=== PATIENT | male | born 1945 ===

== ENCOUNTER 2019-09-22 06:30 | Observation (INO) ==
--- NOTE | 2019-09-16 11:38 | PAT Medication Instructions ---
Medication Instructions Date of Service September 16, 2019 Home Medications fluoxetine 20 mg capsule 20 mg PO QAM hydrochlorothiazide 12.5 mg tablet 25 mg PO QAM losartan 50 mg tablet 25 mg PO QAM DO NOT take the morning of surgery hydrochlorothiazide 12.5 mg tablet 25 mg PO QAM losartan 50 mg tablet 25 mg PO QAM Take morning of surgery With a small sip of water, OTHERWISE NOTHING TO EAT OR DRINK AFTER MIDNIGHT: fluoxetine 20 mg capsule 20 mg PO QAM Other Notes If you have any questions please call us at [phone] or [phone] or [phone] or [phone]
--- NOTE | 2019-09-19 11:28 | Anesthesiology Consultation ---
Date of Service September 19, 2019 Assessment & Plan (1) Encounter for pre-operative examination: Chart Review Chart Review: Acceptable Risk for Surgery and Patient seen in Pre Admission Testing Teaching & Discussion Pre-Anesthesia Teaching/Discussion Notes: Instructed NPO after midnight before surgery,except medications with 15 cc of water. Medication instructions provided according to the PAT guidelines. History Surgery Operation Date: 09/22/19 12:25 Proposed Procedures p Laparoscopic Robotic Assisted Radical Retropubic Prostatectomy, Possible Open, Possible Pelvic Lumph Node Dissection, Possible Suprapubic Tube Placement - Masood Rodriguez MD Height/Weight Height: 5 ft 9 in Weight: 88.8 kg Allergies Allergy/AdvReac Type Severity Reaction Status Date / Time No Known Allergies Allergy Unverified 09/16/19 08:51 Medications Home Medications Medication Instructions Recorded Confirmed Last Taken fluoxetine 20 mg capsule 20 mg PO QAM 09/06/19 09/16/19 Unknown hydrochlorothiazide 12.5 mg tablet 25 mg PO QAM 09/06/19 09/16/19 Unknown losartan 50 mg tablet 25 mg PO QAM 09/06/19 09/16/19 Unknown Past Medical History Medical History (Updated 09/19/19 @ 15:40 by Marie Antony PA-C) Anxiety Hypertension Mood disorder Pt reports taking Prozac for "short temper." Necrotizing inflammation of lymph node Had biopsy of LN in posterior neck- 09/16/19- positive for SCC- Dr. Rodriguez came to PAT on 09/19/19 to discuss with patient. Not from prostate cancer Osteoarthritis Prostate cancer Exercise / Class Metabolic Activity II 4-5 Yardwork/Stairs/Walk up hill (one flight of stairs- no chest pain and SOB ) Past Family History Family History Mother , 95yo Natural with unknown cause Father , 56yo Myocardial infarction Sister Pacemaker Daughter No problems noted. Daughter No problems noted. Daughter No problems noted. Daughter No problems noted. Past Surgical History Surgical History History of appendectomy History of cardiac cath over 10 yrs ago> [facility] PER PATIENT> NO STENTS History of tooth extraction WISDOM TEETH S/P tonsillectomy and adenoidectomy Past Anesthesia History No Hx of Anesthesia Complications and No Family Hx of Anesthesia Complications History of PONV No Hx of PONV and No Hx of Motion Sickness Social History Smoking Status: Former smoker tobacco type: cigarettes Smoking cigarettes per day: Quit 1979;1-2 PPD x 34yrs; Do You Dip or Chew Tobacco: No Smoking End Date: 1979 Hx Alcohol Use: Yes Alcohol type: beer alcohol intake frequency: a few times a month Hx Substance Use: No substance use type: does not use Review of Systems Reflux- occ - relieved with aloe vera juice Snoring- occ apnea x 6-8 seconds (recommended follow up with PCP) Patient denies chest pain, shortness of breath, dyspnea on exertion, cough, wheezing, palpitations. No hx of seizures, stroke, CT. No hx of blood clots or blood transfusions Physical Exam Vital Signs VITALS BP 166/98 (Dr Rodriguez had come into PAT appt- did deliver unfortunate news that LN bx from neck positive for cancer) P 67 TEMP 98.0 SP02 100% RESP 16 Constitutional no acute distress ENMT Mouth: no TMJ clicking Thyromental Distance: > or= 3.5 Finger Breadths (4.0) Mallampati Class: III Missing molars Crowned molars Bottom right back molar chipped Neck + limited neck extension (significant ) Respiratory normal respiratory effort; no respiratory distress Auscultation: lungs clear to auscultation bilaterally; no wheezes Cardiovascular Rate/Rhythm: regular rate and regular rhythm Heart Sounds: no murmur Vessels: no carotid bruit Extremities: no edema Musculoskeletal Spine: + pain with cervical ROM (mild pulling discomfort ) Neurologic moves all extremities Psychiatric Orientation: alert Testing Laboratory Results 09/19/19 11:54 09/19/19 11:54 Urine Color Yellow 09/19/19 11:54 Urine Appearance Clear (Clear) 09/19/19 11:54 Urine pH 7.0 (4.5-7.5) 09/19/19 11:54 Ur Specific [place] 1.008 (1.000-1.030) 09/19/19 11:54 Urine Protein Negative (Negative) 09/19/19 11:54 Urine Glucose (UA) Negative (Negative) 09/19/19 11:54 Urine Ketones Negative (Negative) 09/19/19 11:54 Urine Nitrite Negative (Negative) 09/19/19 11:54 Ur Leukocyte Esterase Negative (Negative) 09/19/19 11:54 Blood Type B Positive 09/19/19 11:54 Antibody Screen NEGATIVE 09/19/19 11:54 Electrocardiogram Date: 09/19/19 Findings: + NSR @ (68) Chest X-Ray Date: 09/19/19 Findings: + NAD Other Testing Chest CT 09/19/19= No acute intrathoracic abnormality. No pathologically enlarged lymph nodes or evidence of pulmonary metastatic disease. Minimal subpleural reticulation of the basal left lower lobe suggests fibrotic change. 11 x 8 mm soft tissue density structure the prevascular tissues, image 61 series 4 suggestive of a prominent lymph node. No pathologically enlarged lymph nodes by CT size criteria. Moderate coronary artery calcifications. Mild mixed plaque of the thoracic aortic arch.
--- NOTE | 2019-09-19 12:49 | XRay Report ---
XR chest Pre-admission PA/Lat HISTORY: 73 years-old Male PAT preoperative exam. No acute chest complaints COMPARISON: CT abdomen pelvis 08/23/2019 TECHNIQUE: PA and lateral views of the chest FINDINGS: Cardiac mediastinal and hilar silhouettes are within normal limits. No pneumothorax, pleural effusion , focal airspace consolidation or overt pulmonary edema. Degenerative changes of the shoulders and sp ine. IMPRESSION: No acute process. ACT 112: Negative or not required by law. The above report was generated using voice recognition software. It may contain grammatical, syntax o r spelling errors. Electronically signed by: Erwin Benavides M.D. 09/19/2019 12:48 PM
[2019-09-19 13:06] LABS: Appearance Urine Clear (Clear); Bilirubin Urine Negative (Negative); Blood Urine Negative (Negative); Color Urine Yellow; Glucose Urine UA Negative (Negative); Ketones Urine Negative (Negative); Leukocyte Esterase Urine Negative (Negative); Nitrite Urine Negative (Negative); Protein Urine Negative (Negative); Specific Gravity Urine 1.008 (1.000-1.030); Urobilinogen Urine Negative (Negative)
[2019-09-19 13:10] LABS: Basophils # (auto) 0.05 K/uL (0-0.2); Basophils % (auto) 0.6 %; Eosinophils # (auto) 0.16 K/uL (0-0.5); Eosinophils % (auto) 1.9 %; Hematocrit (blood only) 42.8 % (42-52); Hemoglobin 14.2 g/dL (14.0-18.0); Immature Granulocytes # (auto) 0.02 K/uL (0.00-0.02); Immature Granulocytes % (auto) 0.2 %; Lymphocytes # (auto) 2.01 K/uL (1.2-3.4); Lymphocytes % (auto) 23.6 %; Mean Corpuscular Hemoglobin 30.2 pg (25-34); Mean Corpuscular Hgb Conc 33.2 g/dL (32-36); Mean Corpuscular Volume 91.1 fL (80-100); Mean Platelet Volume 12.4 fL (7.4-10.4); Monocytes # (auto) 0.69 K/uL (0.11-0.59); Monocytes % (auto) 8.1 %; Neutrophils # (auto) 5.59 K/uL (1.4-6.5); Neutrophils % (auto) 65.6 %; Platelet Count 205 K/uL (130-400); RDW Coefficient of Variation 12.6 % (11.5-14.5); RDW Standard Deviation 42.3 fL (36.4-46.3); White Blood Count 8.52 K/uL (4.8-10.8)
[2019-09-19 13:21] LABS: BUN Creatinine Ratio 18.4 (10-20); Calcium 9.3 mg/dl (8.5-10.1); Creatinine Clr Calc Pharmacy 66.5 ml/min; Est GFR (African American) 77.6; Potassium 4.3 mmol/L (3.5-5.1)
--- NOTE | 2019-09-19 13:26 | Electrocardiogram Report ---
Test Reason : Blood Pressure : / mmHG Vent. Rate : 068 BPM Atrial Rate : 068 BPM P-R Int : 152 ms QRS Dur : 090 ms QT Int : 400 ms P-R-T Axes : 046 058 030 degrees QTc Int : 425 ms Normal sinus rhythm Normal ECG No previous ECGs available Confirmed by Dc Cisneros ([id number]) on 09/19/2019 1:25:57 PM Referred By: Masood Rodriguez Confirmed By:Dc Cisneros
[~2019-09-22 06:30] MED LIST: ACETAMINOPHEN 1000 MG/100 ML IV IV SCH; CEFAZOLIN 2000MG 2,000 MG/15 ML SYR IV SCH; HEPARIN SOD 5,000 UNIT/0.5 ML VIAL SQ SCH; LACTATED RINGER'S 1,000 ML IV SCH; LR 15ML/HR IV SCH
[2019-09-22] MEDS ORDERED: BUPIVACAINE 0.5 % 5 MG/1 ML MPF 30ML VIAL ONE (07:50)
--- NOTE | 2019-09-22 07:51 | History & Physical Bridge Note ---
Date of Service September 22, 2019 History & Physical Bridge Note I have examined the patient, reviewed the History & Physical and in the interval since the performance of the History & Physical I have noted the following changes of clinical significance: no changes noted
[2019-09-22] MEDS ORDERED: ROCURONIUM BROMIDE 10 MG/ML 5 ML VIAL ONE (08:01)
[2019-09-22] MEDS ORDERED: GLYCOPYRROLATE 0.2 MG/ML VIAL ONE (08:01)
[2019-09-22] MEDS ORDERED: ONDANSETRON INJ 2 MG/ML 2 ML VIAL ONE (08:01)
[2019-09-22] MEDS ORDERED: DEXAMETHASONE SOD INJ 4 MG/ML VIAL ONE (08:01)
[2019-09-22] MEDS ORDERED: LIDOCAINE HCL 2% 2 ML VIAL/AMP(20MG/ML) INFIL ONE (08:01)
[2019-09-22] MEDS ORDERED: PROPOFOL IV EMULSION 10 MG/ML 20 ML VIAL IV ONE (08:01)
[2019-09-22] MEDS ORDERED: NEOSTIGMINE METHYLSULFATE 5 MG/5 ML SYR ONE (08:01)
[2019-09-22] MEDS ORDERED: fentaNYL citrate 100 MCG/2 ML VIAL ONE ×3 (08:01→11:06)
[2019-09-22] MEDS ORDERED: ePHEDrine sulfate 50 MG/ML AMP IV PRN (08:02)
[2019-09-22] MEDS ORDERED: ONDANSETRON INJ 2 MG/ML 2 ML VIAL IV PRN ×2 (08:02→14:33)
[2019-09-22] MEDS ORDERED: ATROPINE SULFATE 0.1 MG/ML 10ML SYR IV PRN (08:02)
[2019-09-22] MEDS ORDERED: MIDAZOLAM HCL 1 MG/ML 2ML VIAL ONE (08:02)
[2019-09-22] MEDS ORDERED: fentaNYL citrate 100 MCG/2 ML VIAL IV PRN (08:02)
[2019-09-22] MEDS ORDERED: FLOSEAL HEMOSTATIC MATRIX 10ML TOP ONE (12:04)
--- NOTE | 2019-09-22 12:36 | Operative Report ---
PG Post Operative Report Pre & Post Diagnosis Operation Date: 09/22/19 08:35 Pre-Op Diagnosis: Prostate Cancer Post-Op Diagnosis: Prostate Cancer I identified the patient and participated in the time-out.: Yes Procedure Operation Date: 09/22/19 08:35 Actual Procedures p Laparoscopic Robotic-Assisted Radical Retropubic Prostatectomy, robotic lysis of adhesions, Bilateral Pelvic Lymph Node Dissection, Suprapubic Tube Placement(Not Applicable) - Masood Rodriguez MD Surgeon Masood Rodriguez MD Jailkeeper Estela AU, ROE Ramsay Estimated Blood Loss 150 Findings Consistent with Post-Op Diagnosis Specimens Prostate + SVs, periprostatic fat, L and R PLN Description of Procedure See above I attest to the content of the Intraoperative Record and any orders documented therein. Any exceptions are noted below.
[2019-09-22 13:21] LABS: Basophils # (auto) 0.01 K/uL (0-0.2); Basophils % (auto) 0.1 %; Hematocrit (blood only) 39.9 % (42-52); Hemoglobin 13.3 g/dL (14.0-18.0); Immature Granulocytes # (auto) 0.03 K/uL (0.00-0.02); Immature Granulocytes % (auto) 0.2 %; Lymphocytes # (auto) 0.71 K/uL (1.2-3.4); Lymphocytes % (auto) 5.3 %; Mean Corpuscular Hemoglobin 30.4 pg (25-34); Mean Corpuscular Volume 91.1 fL (80-100); Mean Platelet Volume 11.7 fL (7.4-10.4); Monocytes # (auto) 0.17 K/uL (0.11-0.59); Monocytes % (auto) 1.3 %; Neutrophils # (auto) 12.36 K/uL (1.4-6.5); Neutrophils % (auto) 93.1 %; Platelet Count 166 K/uL (130-400); RDW Coefficient of Variation 12.5 % (11.5-14.5); RDW Standard Deviation 41.9 fL (36.4-46.3); Red Blood Count 4.38 M/uL (4.7-6.1); White Blood Count 13.28 K/uL (4.8-10.8)
--- NOTE | 2019-09-22 13:23 | Operative Report ---
PG Post Operative Report Pre & Post Diagnosis Operation Date: 09/22/19 08:35 Pre-Op Diagnosis: High volume Fili 5+4 Prostate Cancer with a pretreatment PSA of 23 Post-Op Diagnosis: Same. Surgeon: Dr. Masood Rodriguez. Assistants: ROE Chew, ROE Duarte Anesthesia: General anesthesia with endotracheal ablation plus local at port sites. Drains left in place: 16 Danish suprapubic catheter with 10 cc of sterile water in the balloon, 18 Danish Conde catheter with 10 cc of sterile water in the balloon, #10 BAILEE drain left lower quadrant. Findings: Copious colonic adhesions in the left lower quadrant consistent with prior diverticulitis requiring 40 minutes of lysis of adhesions to access surgical field. Some right lower quadrant adhesions noted. Watertight anastomosis with good suprapubic tube location intraoperatively. Significant p eriprostatic inflammation. Specimen sent pathology: Periprostatic fat, prostate plus seminal vesicles, left and right pelvic lymph nodes. Complications: None. IV fluids: 1200 cc of crystalloid. I identified the patient and participated in the time-out.: Yes Procedure Operation Date: 09/22/19 08:35 Actual Procedures p Laparoscopic Robotic-Assisted Radical Retropubic Prostatectomy, robotic lysis of adhesions, Bilateral Pelvic Lymph Node Dissection, (Not Applicable) - Masood Rodriguez MD s Suprapubic Tube Placement(Not Applicable) - Masood Rodriguez MD Brief history: Patient is a 73-year-old male with a history of an elevated and rising PSA found to have high volume, high-grade prostate cancer on prostate biopsy. After discussion of risks and benefits of various forms of intervention is decided upon a robotic prostatectomy to manage his disease. Staging studies with bone scan and CT scan demonstrated no intra-abdominal pathology a questionable focus of increased activity on bone scan of the neck. This led to a soft tissue CT scan demonstrating a necrotic 2 cm lymph node. 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 Patient was evaluated by ENT yesterday and discovered to have a mass on the epiglottis. Per discussion with medical oncology and ENT service we are proceeding with surgical management of his prostate cancer prior to the initiation of therapy in a few weeks time for his squamous cell carcinoma. Please see H&P and outpatient notes for further details. Intravenous Ancef is provided for antibiotic coverage and SCDs as well as subcutaneous heparin were used for DVT prophylaxis. Intravenous Tylenol was provided perioperatively for additional analgesia. Procedure: Patient was properly identified and brought into the operative suite after identification of appropriate consent in the chart. General anesthesia with endotracheal the patient was initiated and patient was prepped and draped in the standard fashion for this procedure. Full timeout procedure was followed. All port sites were anesthetized with local prior to incision. A transverse supraumbilical incision was made and a 0 degree laparoscope with a 12 mm visual obturator was used to enter the abdominal cavity under direct visualization. Abdomen was insufflated to 15 mmHg and inspected. Copious adhesions in the left lower quadrant and fewer in the right lower quadrant were appreciated associated with the bowel. However, location for ports was noted to be clear of adhesions. Ports were placed for fourth arm robotic template including 2 left-sided 7 mm robotic ports, one right-sided 7 robotic port, a 5 mm and 12 mm assistant professor of criminal justice port. Patient was placed in Trendelenburg and robot was brought in and docked. 0 degree lens was introduced lysis of adhesions using cold scissors was performed to allow for access to the pelvis. This took approximately 40 minutes time. After this was complete and approximation of normal anatomy was appreciated. Hook cautery was used to drop the bladder down to the level of the pubic bone in the midline. Prostate was defatted and this was sent for pathologic analysis. Endopelvic fascia was then sharply entered on both sides dissected down to the level of the apex of the prostate. Dorsal venous complex was skeletonized and controlled using 0 Vicryl suture on a CT1 needle in a [id number] fashion. 30 degree down lens was used to place the bladder neck on traction and then dissection was carried down to the level of the Conde catheter which was then used for anterior traction on the prostate gland. Posterior bladder neck was divided and dropped in the midline and noted to be continent. Dissection was carried down to the level of the vas deferens in the midline. These were noted to be significantly indurated, right greater than left. They were able to be dissected free and seminal vesicles were dissected free in their entirety. A buttonhole in the pouch of Ariel was appreciated due to a variant of the patient's anatomy but the rectum was tested and noted to be free of any injuries at this point. Rectum was dropped in the midline down to the level of the apex of the prostate. Inferior bladder pedicles and prostatic pedicles were skeletonized and then divided using a vessel sealer. Remaining dissection was carried out to the level of the apex of the prostate. Conde catheter was replaced and the dorsal venous complex was divided using hot scissors. Due to some bleeding vessels in this area another rrbcxn-fj-jmsxa suture was placed for additional hemostatic control. Rectourethralis fibers were divided and the prostate was brought up into the abdomen where it was placed within an Endo Catch bag for retrieval at the end of the case. FloSeal tissue sealant was placed on the prostate bed for additional postoperative analgesia after testing the rectum with insufflation under saline irrigation and noting that it was free of injury. Attention was then turned to the pelvic lymph node dissections on both sides. Confines of the obturator fossa were used for dissection including the external iliac vein, pelvic sidewall and obturator nerve. Weck clips were used for control of small vessels and large lymphatics as well as cautery as necessary. These were able to be dissected free without any injury to the obturator nerve or artery on either side. Left-sided node packet was labeled using a Weck clip and these were placed within a single Endo Catch bag for retrieval at the end of the case. Additional FloSeal was placed within the obturator fossa for further hemostasis. Attention was then turned to the pelvis where a continent bladder n tato was noted. Using a double-armed V lock suture a running vesicourethral anastomosis was performed. Conde catheter easily into the bladder over the course of the closure. After this was complete catheter was placed within the bladder and the anastomosis was tested with greater than 120 cc of sterile saline and noted to be watertight. Seen the excellent closure of the anastomosis decision was made to proceed with a suprapubic tube placement. Small suprapubic incision was made and a suprapubic tube kit was introduced into the abdomen under direct visualization. After distending the bladder this was introduced into the bladder followed by a 16 Danish silicone catheter with 10 cc of sterile water in the balloon. Urethral Conde was replaced with an 18 Danish catheter with 10 cc of sterile water in the balloon. Catheters were able to be irrigated with isovolemic return from one to the other. Fourth arm was then removed and a #10 BAILEE drain was placed via the fourth arm port within the confines of the pelvis while avoiding placing it directly over the anastomosis. Robotic instruments were removed and robot was de-docked. Supraumbilical incision was enlarged sufficiently to allow for easy removal of the specimen bags which were brought up through this incision using the camera through the 12 mm assistant professor of criminal justice port. All trochars were removed and excess carbon oxide gas was delivered from the abdomen. Supraumbilical incision was closed in 3 layers using 0 Vicryl suture on a UR 5 needle at the level of the fascia, 3-0 Vicryl on the subcutaneous fat and 4-0 Monocryl at the level of the skin. 2-0 silk sutures were used to secure the BAILEE drain and suprapubic tube in place. 4-0 Monocryl was placed at additional skin sites followed by Dermabond dressing at the level of the skin. BAILEE drain was placed to bulb suction and catheters were placed to gravity drainage. Anesthesia was reversed and patient was transferred to the recovery room in stable condition. Follow-up CARE: Patient will be admitted to the floor for standard postoperative management. Surgeon Masood Rodriguez MD Instrument Room Technician Estela AU, ROE Gandhi Estimated Blood Loss 150 Findings Consistent with Post-Op Diagnosis Specimens See above Description of Procedure See above I attest to the content of the Intraoperative Record and any orders documented therein. Any exceptions are noted below.
[2019-09-22 13:39] LABS: BUN Creatinine Ratio 12.1 (10-20); Calcium 8.4 mg/dl (8.5-10.1); Creatinine Clr Calc Pharmacy 50.6 ml/min; Est GFR (African American) 56.9; Est GFR (Non-African American) 49.1; Potassium 3.5 mmol/L (3.5-5.1)
--- NOTE | 2019-09-22 13:39 | Anesthesiology Progress Note ---
Date of Service September 22, 2019 Anesthesia Post Procedure Vital Signs Vital Signs: Temp Pulse Pulse Resp BP Pulse Ox 09/22/19 13:35 98.4 F 86 23 133/75 100 09/22/19 13:25 98.4 F 81 15 147/79 H 100 09/22/19 13:15 84 16 148/81 H 100 09/22/19 13:05 87 15 145/82 H 100 09/22/19 12:55 84 18 144/78 H 100 09/22/19 12:47 97.7 F 88 19 140/78 100 09/22/19 06:56 98.1 F 71 16 140/78 100 Transfer of Care Handoff Completed per policy Notes Mental Status: alert / awake / arousable and participated in evaluation Patient Amnestic to Procedure: Yes Nausea / Vomiting: adequately controlled Pain: adequately controlled Airway Patency, RR, SpO2: stable & adequate BP & HR: stable & adequate Hydration State: stable & adequate Anesthetic Complications: no major complications apparent and Pt Satisfied with anesthetic care
[2019-09-22 14:28] LABS: Mean Corpuscular Hgb Conc 33.3 g/dL (32-36)
[2019-09-22] MEDS ORDERED: HYDROmorphone INJ 1 MG/ML SYRINGE IV PRN (14:33)
[2019-09-22] MEDS ORDERED: HYDROmorphone INJ 0.5 MG/0.5 ML SYR IV PRN (14:33)
[2019-09-22] MEDS: LACTATED RINGER'S 1,000 ML IV SCH ×2 (15:10→21:09)
[2019-09-22] MEDS: ACETAMINOPHEN 1,000 MG/100 ML VIAL IV SCH ×3 (15:11→22:01)
[2019-09-22] MEDS: CEFAZOLIN 2000MG 2,000 MG/15 ML SYR IV SCH (15:45)
--- NOTE | 2019-09-22 18:51 | Progress Note ---
Date of Service September 22, 2019 Assessment & Plan Admission and Anticipated Discharge Date Admission Date: September 22, 2019 Subjective Patient seen in PM rounds. in room. OOBTC, ambulatory tonight. Intraop events reviewed. Patient notes he is "sore," in good spirits and conversant. No other c/o, britt clears. NAD S1 S2 Good respiratory excursion. Soft, NT, ND, inc c/d/i, BAILEE and SP in place with serosang drainage. Labs as below, slight bump in Cr noted. A/P 73 yo male POD#0 s/p RALRP, SPT, BPLND. Doing well. Advance diet and activity tomorrow. Leg bag training tomorrow. DC danielson in AM if doing well and per patient preference, anticipate DC BAILEE and DC home in early afternoon. Patient and vocalize understanding of the treatment plan. Results & Data ([facility]) Vital Signs (Past 12 Hours) Vital Signs Temp Pulse Pulse Resp BP Pulse Ox 09/22/19 17:20 36.7 C 95 H 18 114/66 94 09/22/19 16:20 36.6 C 80 18 112/71 98 09/22/19 15:27 36.6 C 89 18 129/78 98 09/22/19 15:00 36.6 C 92 H 16 145/83 H 98 09/22/19 14:39 37 C 89 16 131/79 98 09/22/19 13:55 36.9 C 82 13 140/77 100 09/22/19 13:45 36.9 C 86 15 147/74 H 100 09/22/19 13:35 36.9 C 86 23 133/75 100 09/22/19 13:25 36.9 C 81 15 147/79 H 100 09/22/19 13:15 84 16 148/81 H 100 09/22/19 13:05 87 15 145/82 H 100 09/22/19 12:55 84 18 144/78 H 100 09/22/19 12:47 36.5 C 88 19 140/78 100 09/22/19 06:56 36.7 C 71 16 140/78 100 PG Care Time/CCT Total # of Minutes Spent Total Time Spent with Patient: Total time spent is greater than 50% in case management coordinator rdination of care (as documented) at patient's floor/unit and/or counseling patient: Coding Level of Care Code None
[2019-09-22] MEDS: DOCUSATE SODIUM 100 MG CAP PO SCH (22:02)
[2019-09-22] MEDS: HEPARIN SOD 5,000 UNIT/0.5 ML VIAL SQ SCH (22:02)
[2019-09-22] MEDS: FAMOTIDINE 10 MG TABLET PO SCH (22:02)
[2019-09-23] MEDS: CEFAZOLIN 2000MG 2,000 MG/15 ML SYR IV SCH (00:13)
[2019-09-23] MEDS: ACETAMINOPHEN 1,000 MG/100 ML VIAL IV SCH (06:08)
[2019-09-23 06:29] LABS: Basophils # (auto) 0.01 K/uL (0-0.2); Basophils % (auto) 0.1 %; Eosinophils # (auto) 0.01 K/uL (0-0.5); Eosinophils % (auto) 0.1 %; Hematocrit (blood only) 37.8 % (42-52); Hemoglobin 12.6 g/dL (14.0-18.0); Immature Granulocytes # (auto) 0.02 K/uL (0.00-0.02); Immature Granulocytes % (auto) 0.1 %; Lymphocytes # (auto) 1.68 K/uL (1.2-3.4); Lymphocytes % (auto) 11.2 %; Mean Corpuscular Hemoglobin 30.2 pg (25-34); Mean Corpuscular Hgb Conc 33.3 g/dL (32-36); Mean Corpuscular Volume 90.6 fL (80-100); Mean Platelet Volume 12.1 fL (7.4-10.4); Monocytes # (auto) 1.33 K/uL (0.11-0.59); Monocytes % (auto) 8.9 %; Neutrophils # (auto) 11.97 K/uL (1.4-6.5); Neutrophils % (auto) 79.6 %; Platelet Count 192 K/uL (130-400); RDW Coefficient of Variation 12.8 % (11.5-14.5); RDW Standard Deviation 41.8 fL (36.4-46.3); Red Blood Count 4.17 M/uL (4.7-6.1); White Blood Count 15.02 K/uL (4.8-10.8)
[2019-09-23 07:16] LABS: BUN Creatinine Ratio 11.2 (10-20); Calcium 8.7 mg/dl (8.5-10.1); Creatinine Clr Calc Pharmacy 70.7 ml/min; Est GFR (African American) 85.1; Est GFR (Non-African American) 73.4; Potassium 3.6 mmol/L (3.5-5.1)
[2019-09-23 07:37] VITALS: BP 118/67; PULSE 73; TEMP 97.9; O2SAT 100
--- NOTE | 2019-09-23 08:31 | Anesthesiology Progress Note ---
Date of Service September 23, 2019 Anesthesia Post Procedure Vital Signs Vital Signs: Temp Pulse Pulse Resp BP Pulse Ox 09/23/19 07:36 36.6 C 73 18 118/67 100 09/23/19 03:38 36.5 C 83 16 126/68 97 09/22/19 23:12 36.7 C 80 18 121/71 98 09/22/19 20:37 36.8 C 80 18 136/77 98 09/22/19 17:20 36.7 C 95 H 18 114/66 94 09/22/19 16:20 36.6 C 80 18 112/71 98 09/22/19 15:27 36.6 C 89 18 129/78 98 09/22/19 15:00 36.6 C 92 H 16 145/83 H 98 09/22/19 14:39 37 C 89 16 131/79 98 09/22/19 13:55 36.9 C 82 13 140/77 100 09/22/19 13:45 36.9 C 86 15 147/74 H 100 09/22/19 13:35 36.9 C 86 23 133/75 100 09/22/19 13:25 36.9 C 81 15 147/79 H 100 09/22/19 13:15 84 16 148/81 H 100 09/22/19 13:05 87 15 145/82 H 100 09/22/19 12:55 84 18 144/78 H 100 09/22/19 12:47 36.5 C 88 19 140/78 100 Pain Intensity Lower Abdomen: Pain Intensity: 7 Notes Mental Status: alert / awake / arousable and participated in evaluation Patient Amnestic to Procedure: Yes Nausea / Vomiting: adequately controlled Pain: adequately controlled Airway Patency, RR, SpO2: stable & adequate BP & HR: stable & adequate Hydration State: stable & adequate Anesthetic Complications: no major complications apparent and Pt Satisfied with anesthetic care
[2019-09-23] MEDS ORDERED: LOSARTAN POTASSIUM 25 MG TAB PO SCH (09:00)
[2019-09-23] MEDS: FAMOTIDINE 10 MG TABLET PO SCH (09:00)
[2019-09-23] MEDS ORDERED: FLUOXETINE HCL 20 MG CAP PO SCH (09:00)
[2019-09-23] MEDS ORDERED: hydroCHLOROthiazide 25 MG TAB PO SCH (09:00)
[2019-09-23] MEDS: HEPARIN SOD 5,000 UNIT/0.5 ML VIAL SQ SCH (09:01)
[2019-09-23] MEDS: DOCUSATE SODIUM 100 MG CAP PO SCH (09:04)
--- NOTE | 2019-09-23 09:18 | Urology Progress Note ---
Date of Service September 23, 2019 Assessment & Plan (1) Prostate cancer: 73yo male POD#0 s/p RALRP, SPT, BPLND. Doing well. Advance diet and activity. d/c urethral cather and continue SP tube catheter. BAILEE with minimal output - okay to discharge home after lunch if continues to progress. Patient and vocalize understanding of the treatment plan. Discharge instructions reviewed. Subjective Pt evaluated this AM, at bedside. OOBTC, ambulatory tonight. Still reports being "sore" but has "no pain" Tolerating clears well. BAILEE with minimal output. No issues overnight.. Review of Systems Review of Systems: All systems reviewed & are unremarkable except as noted in HPI & below Physical Exam Constitutional: comfortable; no acute distress, not ill appearing, no altered mental status and not lethargic Eyes: no nystagmus ENMT: Ears: no hearing impairment Neck: trachea midline Respiratory: no respiratory distress, does not use accessory muscles, no cough and no grunting Cardiovascular: Vessels: no JVD Extremities: no edema Chest (Breasts): Chest: normal inspection of chest Gastrointestinal (Abdomen): Inspection/Auscultation: abdomen not distended and no abdominal edema Percussion/Palpation: abdomen soft; abdomen nontender Musculoskeletal: no cyanosis or clubbing, extremities motor strength 5/5 Head/Neck/Chest: normocephalic and head atraumatic Extremities: extremities normal to inspection Skin: no rashes, warm and dry Neurologic: awake; not confused and not obtunded Psychiatric: Orientation: alert and oriented x 3 Eye Contact: good eye contact Affect: no depressed affect Genitourinary: no CVA tenderness Lymphatic: no lymphadenopathy and no lymphedema Results & Data Vital Signs (Past 12 Hours) Vital Signs Temp Pulse Resp BP Pulse Ox 09/23/19 07:36 36.6 C 73 18 118/67 100 09/23/19 03:38 36.5 C 83 16 126/68 97 09/22/19 23:12 36.7 C 80 18 121/71 98 PG Care Time/CCT Total # of Minutes Spent Total Time Spent with Patient: Total time spent is greater than 50% in coordination of care (as documented) at patient's floor/unit and/or counseling patient: Coding Level of Care Code None Diagnoses Prostate cancer C61
[2019-09-23] MEDS: LACTATED RINGER'S 1,000 ML IV SCH (11:08)
--- NOTE | 2019-10-12 11:58 | Discharge Summary ---
Date of Service October 12, 2019 Admission HPI Per Admitting Provider 73 yo male here for RALRP for CAP. See H&P for further details. Admission Exam (Per Admitting) Constitutional well developed and well nourished; no acute distress Eyes eyes not dysmorphic ENMT Ears: no external ear abnormality Neck trachea midline; no anterior neck swelling Respiratory no respiratory distress and does not use accessory muscles Cardiovascular Vessels: radial pulses present Gastrointestinal (Abdomen) Inspection/Auscultation: abdomen not distended Percussion/Palpation: abdomen soft; abdomen nontender Musculoskeletal Head/Neck/Chest: normocephalic and neck supple Skin normal turgor Neurologic awake; not obtunded Psychiatric Orientation: oriented x 3 Lymphatic no lymphadenopathy Discharge Data Procedures Performed Operation Date: 09/22/19 08:35 Actual Procedures p Laparoscopic Robotic-Assisted Radical Retropubic Prostatectomy, robotic lysis of adhesions, Bilateral Pelvic Lymph Node Dissection, (Not Applicable) - Masood Rodriguez MD s Suprapubic Tube Placement(Not Applicable) - Masood Rodriguez MD Hospital Course (1) Prostate cancer: 73yo male POD#0 s/p RALRP, SPT, BPLND. Doing well. Advance diet and activity. d/c urethral cather and continue SP tube catheter. BAILEE with minimal output - okay to discharge home after lunch if continues to progress. Patient and vocalize understanding of the treatment plan. Discharge instructions reviewed. Coding Level of Care Code D/C Day Management <30 mins Diagnoses Prostate cancer C61
== END 2019-09-23 14:25 | disposition home or self-care (01) | DRG 708 ==
LOC: ASU 06:30 → 3W 12:49 → INTOOBSV 12:49